=== PATIENT | male | born 1965 | race Caucasian/White ===

== ENCOUNTER 2019-06-03 14:10 | Inpatient (IN) | payer OTHER, SELFPAY ==
[2019-06-03] MEDS ORDERED: Morphine 4 MG/ML VIAL ONE (14:27)
--- NOTE | 2019-06-03 14:50 | RAD ---
2 VIEWS RIGHT HIP: Date: 06/03/19 COMPARISON: None. HISTORY: Fall with right hip pain. FINDINGS: 2 views of the right hip show an intertrochanteric right femur fracture. No degenerative change seen in the right hip. Surrounding soft tissue swelling is seen. IMPRESSION: Intertrochanteric right femur fracture. POS: OFF
--- NOTE | 2019-06-03 14:51 | RAD ---
SINGLE VIEW PELVIS: Date: 06/03/19 HISTORY: Fall with right hip pain. FINDINGS: A single view of the pelvis shows an intertrochanteric right femur fracture. No other fractures are s een. No degenerative changes are seen in either hip. IMPRESSION: Right intertrochanteric femur fracture. POS: OFF
[2019-06-03 15:14] LABS: #Basophils 0.1 thou/uL (0.0-0.2); #Lymphocytes 1.8 thou/uL (1.20-3.40); #Monocytes 0.4 thou/uL (0.11-0.59); #Neutrophils 1.9 thou/uL (1.40-6.50); %Basophils 1.3 % (0.0-1.0); %Lymphocytes 43.5 % (21.0-51.0); %Monocytes 9.6 % (0.0-10.0); %Neutrophils 44.6 % (42.0-75.0); Hemoglobin 15.5 g/dL (14.0-18.0); Mean Corpuscular HGB CONC 35.4 g/dL (32.0-36.0); Mean Corpuscular Hemoglobin 33.5 pg (27.0-31.0); Mean Corpuscular Volume 94.7 fL (78.0-98.0); Mean Platelet Volume 10.3 fL (7.4-10.4); Platelet Count 210 thou/uL (130-400); RBC Distribution Width 12.7 % (11.5-14.5); Red Blood Cell (RBC) Count 4.63 mill/uL (4.70-6.10); White Blood Cell (WBC) Count 4.2 thou/uL (4.8-10.8)
[2019-06-03] MEDS ORDERED: CEFAZOLIN 2 GM in Premix Bag 1 BAG IVPB SCH (15:15)
--- NOTE | 2019-06-03 15:27 | RAD ---
XR Chest 1 View Portable HISTORY: Fall, chest pain COMPARISON: None FINDINGS: The heart size is normal. The lungs are well expanded without focal areas of consolidation, pneumothorax or pleural effusions. IMPRESSION: No radiographic evidence of acute cardiopulmonary process.
[2019-06-03 15:33] LABS: ALT (SGPT) 30 U/L (8-55); AST (SGOT) 34 U/L (5-34); Albumin 3.9 g/dL (3.5-5.0); Alkaline Phosphatase 59 U/L (40-110); Anion Gap 11 mmol/L (10-20); BUN (Urea Nitrogen) 11 mg/dL (8.4-25.7); Bilirubin, Total 0.4 mg/dL (0.2-1.2); Calc. Creatinine Clearance 0 mL/min (70-130); Calcium 8.8 mg/dL (7.8-10.44); Carbon Dioxide 25 mmol/L (22-29); Chloride 106 mmol/L (98-107); Estimated GFR-MDRD 81; Glucose 83 mg/dL (70-105); Lipase 53 U/L (8-78); Potassium 3.6 mmol/L (3.5-5.1); Protein, Total 7.9 g/dL (6.0-8.3); Sodium 138 mmol/L (136-145)
--- NOTE | 2019-06-03 15:41 | CON ---
DATE OF CONSULTATION: 06/03/2019 This is Hellen Rivera PA-C dictating a report for Jose Maria Campos MD. REQUESTING PHYSICIAN: Jcarlos Jeffrey DO. CONSULTING PHYSICIAN: Jose Maria Campos MD. REASON FOR CONSULTATION: Right hip fracture. HISTORY OF PRESENT ILLNESS: This is a 53-year-old male, who was brought to our emergency department by ground EMS after a fall off an automobile lift, approximately 6 feet. He states he landed directly onto his right hip. Denied any head injury or loss of consciousness. Workup in the emergency department revealed a right intertrochanteric femur fracture and we have been consulted for this reason. Currently at bedside, the patient denies any numbness or tingling in the right lower extremity. He denies any other extremity pain. No headache. PAST MEDICAL HISTORY: Significant for hepatitis C. PAST SURGICAL HISTORY: Left hand and knee surgery. 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 He lives in a chcf house in [place], [place]. He currently denies any alcohol or illicit drug use. The patient uses chewing tobacco. FAMILY HISTORY: Reviewed and noncontributory. REVIEW OF SYSTEMS: Ten-point review of systems conducted and otherwise negative except for stated above. PHYSICAL EXAMINATION: VITAL SIGNS: Current vital signs including temperature of 98.5, pulse of 71, respiratory rate of 16, O2 saturation of 98%, blood pressure of 127/91. GENERAL: The patient is awake and alert. He is in no apparent distress. He is lying supine on an ER stretcher at this time. His boss from work is present in the room. He is appropriate and answers all questions. HEENT: Head is normocephalic and atraumatic. NECK: Supple. Trachea midline. LUNGS: Breathing is nonlabored. EXTREMITIES: The right lower extremity is held in a position of comfort with a blanket tucked underneath the patient's knee in slight flexion. The hip is rotated externally slightly. It appears slightly shortened. The patient is able to move his toes. His foot is cool to touch, but has a good DP pulse. He is also able to move the knee without any difficulty. Skin is intact overlying the right hip. No ecchymosis or lesions present at this time. All other extremities evaluated and no other deformities are noted. IMAGING STUDIES: Radiographic imaging including views of the right hip demonstrates a displaced intertrochanteric femur fracture. ASSESSMENT: Right intertrochanteric femur fracture. PLAN: At this time, the patient will be admitted to the Trauma Service. He may eat up until midnight. After that time, he will be n.p.o. We will plan for surgical intervention tomorrow including a right dynamic hip screw. Risks, benefits, and alternatives discussed with the patient today. He is amenable to this plan of care. Postoperatively, he will work with physical therapy. We will re-evaluate him at that time as well as discuss his living situation and make the best decision as far as postoperative care and discharge. Job ID: [id number]
[2019-06-03] MEDS: Sodium Chloride 0.9% 1,000 ML IV SCH ×2 (15:49→17:12)
[2019-06-03] MEDS ORDERED: Morphine 2 MG/ML SYRINGE SLOW IVP PRN (15:49)
[2019-06-03] MEDS ORDERED: Ondansetron PF 4 MG/2 ML Vial IVP PRN (15:49)
[2019-06-03] MEDS ORDERED: Dextrose 5% in Water 1,000 ML IV PRN (15:49)
[2019-06-03] MEDS ORDERED: hydrALAZINE 20 MG/ML VIAL SLOW IVP PRN (15:49)
[2019-06-03] MEDS ORDERED: Promethazine HCl 25 MG/ML VIAL IM PRN ×2 (15:49)
[2019-06-03] MEDS ORDERED: Dextrose 50% Abboject 50 ML SYRINGE SLOW IVP PRN (15:49)
[2019-06-03] MEDS ORDERED: Ondansetron ODT 4 MG TAB PO PRN (15:49)
[2019-06-03] MEDS ORDERED: Ketorolac Tromethamine 30 MG/ML VIAL ONE (15:52)
[2019-06-03] MEDS: Ketorolac Tromethamine 30 MG/ML VIAL IVP SCH (17:13)
--- NOTE | 2019-06-03 17:14 | HP ---
REQUESTING PHYSICIAN: Jcarlos Jeffrey DO ATTENDING SURGEON: Michele Gandhi DO CONSULTATIONS: Orthopedics, Jose Maria Campos MD HISTORY OF PRESENT ILLNESS: The patient is a 53-year-old man, who was brought to the Emergency Department by ground EMS after falling off an automobile lift. It was estimated the fall was approximately 6 feet in height. He denied loss of consciousness or hitting his head, only landing on his right hip. The patient underwent evaluation and examination in the Emergency Department, was noted to have a right hip fracture, at which time we were asked to evaluate the patient for admission and obtain Orthopedic consultation. PAST MEDICAL HISTORY: Hepatitis C. PAST SURGICAL HISTORY: Tendon repair of left hand, knee surgery, and open reduction and internal fixation of a fracture. CURRENT MEDICATIONS: None. ALLERGIES: NONE. SOCIAL HISTORY: The patient dips tobacco. Denies alcohol or drugs. He works at [employer] here in [place], but lives in [place]. REVIEW OF SYSTEMS: A 10-point review of systems is negative as otherwise stated. PHYSICAL EXAMINATION: VITAL SIGNS: Blood pressure 127/91, heart rate 71, respirations 16, oxygen saturation 98% on room air, and temperature is 98.5. GENERAL: The patient is resting comfortably in bed. He is awake, alert, and oriented x3. [place] Coma Scale is 15. HEENT: Head is normocephalic and atraumatic. Eyes, extraocular motions intact. PERRLA bilaterally. Ears are atraumatic without discharge. Nose is atraumatic without discharge. Oropharynx is clear. NECK: Nontender. Trachea is midline. No JVD. CHEST: Clear to auscultation with good inspiratory and expiratory effort. HEART: Regular rate and rhythm. ABDOMEN: Soft, flat, and nontender with active bowel sounds. EXTREMITIES: Neurovascularly intact x4. The patient's right lower extremity is tender to palpation to the right hip consistent with his fracture. LABORATORY FINDINGS: White blood cell count 4.2, hemoglobin 15.5, hematocrit 43.9, and platelets 210. Sodium 138, potassium 3.6, chloride 106, CO2 of 25, BUN 11, creatinine 0.98, and glucose 83. LFTs are unremarkable. Lipase 53. RADIOGRAPHS: AP chest x-ray shows no radiographic evidence of acute cardiopulmonary process. AP pelvis shows a right intertrochanteric femur fracture. Views of the right hip again show a right intertrochanteric femur fracture. ASSESSMENT AND PLAN: 1. Status post fall from a car lift of approximately 6 feet. 2. Right intertrochanteric femur fracture. 3. Acute pain secondary to above. 4. History of hepatitis C. Plan will be to admit the patient to the surgical floor. He has had lunch, which negates him being able to have surgery today. He will be made n.p.o. after midnight. We will do pain control, pulmonary toilet, gastritis, and mechanical VTE prophylaxis. Postoperatively, we will begin physical and occupational therapy. The patient was evaluated in the Emergency Department by Dr. Campos. The evaluation, examination, laboratory, and radiographic findings will be discussed with Dr. Gandhi after this dictation. Job ID: [id number]
[2019-06-03 17:19] VITALS: BMI 24.7
[2019-06-03] MEDS: Morphine 4 MG/ML VIAL SLOW IVP PRN ×3 (17:54→22:42)
[2019-06-03] MEDS: Acetaminophen 1,000 MG in Premix Bag 1 BAG IVPB SCH (18:00)
[2019-06-03] MEDS: Famotidine 20 MG TAB PO SCH (20:44)
[2019-06-04] MEDS: Acetaminophen 1,000 MG in Premix Bag 1 BAG IVPB SCH ×3 (00:27→17:59)
[2019-06-04] MEDS: Sodium Chloride 0.9% 1,000 ML IV SCH ×2 (00:28→08:21)
[2019-06-04] MEDS: Ketorolac Tromethamine 30 MG/ML VIAL IVP SCH ×4 (00:28→18:00)
--- NOTE | 2019-06-04 01:48 | PRG ---
DATE OF SERVICE: 06/03/2019 SUBJECTIVE: Mr. Acevedo is a 53-year-old male, status post fall from a car lift approximately 6 feet. He sustained right hip fracture with a history of hepatitis C. The patient reports pain is well controlled. He has tolerated with regular diet. OBJECTIVE: GENERAL: Currently, the patient is lying down in bed comfortable with no acute respiratory distress. VITAL SIGNS: Stable. LUNGS: Clear bilaterally. HEART: Regular rate and rhythm. ABDOMEN: Soft, nondistended. NEUROLOGICAL: No focal neurology deficits. Pain and limited range of motion from right hip. PLAN: We will continue supportive care. Continue with pain control. N.p.o. at midnight. The patient will be going to the OR with Orthopedics for right hip fixation. Postop, the patient will be working with PT/OT and anticipate placement in rehabilitation facility. Job ID: [id number]
[2019-06-04] MEDS: Morphine 4 MG/ML VIAL SLOW IVP PRN ×5 (01:57→22:52)
[2019-06-04 04:49] LABS: #Lymphocytes 1.8 thou/uL (1.20-3.40); #Monocytes 0.6 thou/uL (0.11-0.59); #Neutrophils 1.6 thou/uL (1.40-6.50); %Basophils 0.2 % (0.0-1.0); %Eosinophils 1.1 % (0.0-10.0); %Lymphocytes 44.8 % (21.0-51.0); %Monocytes 14.2 % (0.0-10.0); %Neutrophils 39.7 % (42.0-75.0); Hemoglobin 13.9 g/dL (14.0-18.0); Mean Corpuscular HGB CONC 33.3 g/dL (32.0-36.0); Mean Corpuscular Hemoglobin 32.4 pg (27.0-31.0); Mean Corpuscular Volume 97.3 fL (78.0-98.0); Mean Platelet Volume 8.1 fL (7.4-10.4); Platelet Count 171 thou/uL (130-400); RBC Distribution Width 12.7 % (11.5-14.5); Red Blood Cell (RBC) Count 4.29 mill/uL (4.70-6.10); White Blood Cell (WBC) Count 4.1 thou/uL (4.8-10.8)
[2019-06-04 05:13] LABS: Anion Gap 9 mmol/L (10-20); BUN (Urea Nitrogen) 8 mg/dL (8.4-25.7); Calc. Creatinine Clearance 115 mL/min (70-130); Calcium 8.1 mg/dL (7.8-10.44); Carbon Dioxide 24 mmol/L (22-29); Chloride 111 mmol/L (98-107); Estimated GFR-MDRD Greater than 90; Glucose 94 mg/dL (70-105); Potassium 4.3 mmol/L (3.5-5.1); Sodium 140 mmol/L (136-145)
[2019-06-04] MEDS: Famotidine 20 MG TAB PO SCH ×2 (08:16→20:06)
[2019-06-04] MEDS ORDERED: Rocuronium Bromide 10 MG/ML (10ML VIAL) ONE (09:44)
[2019-06-04] MEDS ORDERED: Ondansetron PF 4 MG/2 ML Vial ONE (09:44)
[2019-06-04] MEDS ORDERED: ePHEDrine/0.9% NaCl/PF SYRINGE 50 mg/10 ml ONE (09:44)
[2019-06-04] MEDS ORDERED: PROPOFOL 200 MG/20 ML VIAL ONE (09:44)
[2019-06-04] MEDS ORDERED: Lidocaine 1% PF 5 ML VIAL ONE (09:44)
--- NOTE | 2019-06-04 10:43 | PRG ---
DATE OF SERVICE: 06/04/2019 SUBJECTIVE: The patient is a 53-year-old male, status post fall from a car lift at approximately 12 feet in height. He sustained a right hip fracture. This morning, the patient reports that his pain is well controlled. He has been n.p.o. since midnight with anticipation of surgical repair of the right hip by Dr. Campos, Orthopedic Surgery, later this morning. OBJECTIVE: VITAL SIGNS: Temperature 98.3 Fahrenheit, blood pressure 114/69, pulse 72, respirations 18, O2 saturation 94% on room air. GENERAL: Awake, alert, well-appearing male, who is lying in bed comfortably with no signs of acute distress. LUNGS: Equal chest rise and fall. No signs of acute respiratory distress. ABDOMEN: Soft, nondistended. NEURO: No focal deficits. GCS 15. LABORATORY STUDIES: WBC 4.1, hemoglobin 13.9, hematocrit 41.7, platelets 171. Sodium 140, potassium 4.3, chloride 111, carbon dioxide 24, BUN 8, creatinine 0.84, estimated GFR greater than 90, glucose 94. PLAN: Continue supportive care and pain control. The patient will be going to the OR with Orthopedic Surgery this morning for right hip fixation. Postop plan for the patient to work with Physical Therapy and Occupational Therapy. Anticipate, the patient will need either placement in rehabilitation facility or continued therapy with Home Health Services. The patient's case is complicated by the fact that he lives in a [facility] in [place]. Unsure of services, he can receive there. The patient was seen and evaluated by Dr. Gandhi during morning rounds. Discussed plan of care with the patient, who is in agreement. Job ID: [id number]
[2019-06-04] MEDS ORDERED: Fentanyl 100 MCG/2 ML VIAL ONE ×5 (12:33→16:06)
[2019-06-04] MEDS ORDERED: Ketorolac Tromethamine 30 MG/ML VIAL ONE (12:56)
[2019-06-04] MEDS ORDERED: SUGAMMADEX SODIUM 500 MG/5 ML VIAL ONE (14:28)
--- NOTE | 2019-06-04 14:42 | RAD ---
Intraoperative imaging of the right hip: 06/04/2019 COMPARISON: 06/03/2019 HISTORY: Right femoral neck fracture status post ORIF FINDINGS: The previously noted fracture of the proximal right femur has been treated with a lag screw with associated lateral screw and plate fixation. There is anatomic alignment at the fracture site. IMPRESSION: ORIF as above.
[2019-06-04] MEDS ORDERED: Promethazine HCl 25 MG/ML VIAL IM PRN (15:12)
[2019-06-04] MEDS ORDERED: Promethazine HCl 25 MG/ML VIAL SLOW IVP PRN (15:12)
[2019-06-04] MEDS ORDERED: Ondansetron HCl/PF 4 MG/2 ML Vial IVP PRN ×2 (15:12→15:44)
[2019-06-04] MEDS ORDERED: Promethazine HCl 25 MG/ML VIAL IM/IV PRN (15:44)
[2019-06-04] MEDS ORDERED: Non-Formulary Medication 1 EACH PO PRN (15:44)
[2019-06-04] MEDS ORDERED: Morphine Sulfate 2 MG/ML SYRINGE SLOW IVP PRN (15:44)
[2019-06-04] MEDS ORDERED: PACU-Morphine 4MG/ML VIAL SLOW IVP PRN (15:44)
[2019-06-04] MEDS ORDERED: Morphine 2 MG/ML SYRINGE ONE ×2 (16:57→17:13)
[2019-06-04] MEDS: CEFAZOLIN 2 GM in Premix Bag 1 BAG IVPB SCH (20:07)
--- NOTE | 2019-06-04 21:55 | OP ---
DATE OF PROCEDURE: 06/04/2019 PREOPERATIVE DIAGNOSIS: Right intertrochanteric femur fracture. POSTOPERATIVE DIAGNOSIS: Right intertrochanteric femur fracture. PROCEDURE PERFORMED: Open reduction and internal fixation of right intertrochanteric femur fracture. ANESTHESIA: General. MULTIMEDIA MANAGER: Natacha. IMPLANTS: Synthes DHS 135-degree 3-hole sideplate with 100-mm hip screw. COMPLICATIONS: None. DRAINS: None. SPECIMEN: None. ESTIMATED BLOOD LOSS: 50 mL. OUTCOME: Near-anatomic alignment. INDICATIONS: Mr. Acevedo is a 53-year-old gentleman status post fall from a height of approximately 6 feet, sustaining a right intertrochanteric femur fracture. After discussion with the patient including risks and benefits, we decided to proceed with open reduction and internal fixation using a DHS sideplate. I have discussed with the patient risks and benefits of this procedure. Risks include, but are not limited to bleeding, infection, nerve injury, DVT, PE, loss of limb or life. The patient appears to understand and does wish to proceed. Informed consent has been obtained. DESCRIPTION OF PROCEDURE: The patient was brought to the operating room and a time-out performed followed by induction of general anesthesia. Next, the patient was positioned supine on the fracture table, and then a sterile prep and drape was performed of the right lateral thigh. Next, an incision was made starting just at the base of the greater trochanter and extending distally. After skin was sharply incised, dissection was carried down to the underlying tensor fascia fausto. This structure was incised in line with the skin incision revealing the underlying fascia of the vastus lateralis. This structure was then also incised in line with the skin incision. Then, the muscle belly swept off the posterior leaflet of the fascia and reflected anteriorly. Next, a radiolucent retractor was placed over the anterior cortex of the femur to retract the vastus lateralis muscle. A threaded guidewire was then inserted with 135-degree jig from the lateral cortex of the femur up into the femoral neck and head approaching a [id number] position. Once appropriately positioned, measurement was taken off this pin. Next, reaming was passed over this guidewire for preparing the neck and head to accept the hip screw. A 100-mm hip screw and 3-hole sideplate was then inserted in the wound. The hip screw inserted all way up into the femoral head and then the sideplate affixed to the lateral aspect of the femur. This was held in place with 3 cortical screws. Next, final AP and lateral C-arm images were obtained, that showed acceptable alignment of this fracture and hardware. The wound was then irrigated with normal saline, closed in layers with 0 Vicryl for the tensor fascia fausto, 2-0 Vicryl subcutaneously, and kaushal for the skin. Xeroform gauze and tape dressing were then applied to the thigh and the patient was transferred to recovery room in stable condition. There were no complications. The patient tolerated the procedure well. Job ID: [id number]
[2019-06-05] MEDS: Ketorolac Tromethamine 30 MG/ML VIAL IVP SCH ×2 (00:09→05:26)
[2019-06-05] MEDS: Sodium Chloride 0.9% 1,000 ML IV SCH ×3 (01:20→18:23)
--- NOTE | 2019-06-05 01:40 | PRG ---
DATE OF SERVICE: 06/04/2019 SUBJECTIVE: Mr. Acevedo is a 53-year-old status post fall from 12 feet height. He sustained right hip fracture. He underwent ORIF of right hip fracture. Postop, the patient reports he has been doing good. Pain is well controlled. He is not yet working with PT, OT. His vital signs have been stable. He is tolerating with his regular diet. OBJECTIVE: GENERAL: Currently, the patient is lying down in bed comfortable with no acute respiratory distress. VITAL SIGNS: Stable. EXTREMITIES: Postop dressing of the right hip is clean, dry, intact. Neurovascularly intact x4. PLAN: Continue supportive care. Continue pain control. The patient will be working with PT, OT tomorrow. Anticipate placement in rehabilitation facility or go home with home health. Job ID: [id number]
[2019-06-05] MEDS: CEFAZOLIN 2 GM in Premix Bag 1 BAG IVPB SCH ×2 (03:41→10:05)
[2019-06-05 06:07] LABS: #Lymphocytes 1.2 thou/uL (1.20-3.40); #Monocytes 0.6 thou/uL (0.11-0.59); #Neutrophils 3.8 thou/uL (1.40-6.50); %Basophils 0.3 % (0.0-1.0); %Eosinophils 0.7 % (0.0-10.0); %Monocytes 10.1 % (0.0-10.0); Mean Corpuscular HGB CONC 33.3 g/dL (32.0-36.0); Mean Corpuscular Hemoglobin 32.1 pg (27.0-31.0); Mean Corpuscular Volume 96.4 fL (78.0-98.0); Mean Platelet Volume 8.1 fL (7.4-10.4); Platelet Count 165 thou/uL (130-400); RBC Distribution Width 12.5 % (11.5-14.5); Red Blood Cell (RBC) Count 4.06 mill/uL (4.70-6.10); White Blood Cell (WBC) Count 5.7 thou/uL (4.8-10.8)
[2019-06-05] MEDS: Morphine 4 MG/ML VIAL SLOW IVP PRN (07:48)
[2019-06-05] MEDS: Famotidine 20 MG TAB PO SCH ×2 (07:49→20:11)
[2019-06-05] MEDS ORDERED: traMADol HCl 50 MG TAB PO PRN (08:46)
[2019-06-05] MEDS: Enoxaparin Sodium 40 MG/0.4 ML SYRINGE SC SCH (09:19)
[2019-06-05] MEDS: traMADol HCl 50 MG TAB PO PRN ×2 (09:21→16:42)
[2019-06-05] MEDS: Ibuprofen 800 MG TAB PO SCH ×2 (12:27→18:04)
[2019-06-05] MEDS: Acetaminophen 500 MG TAB PO SCH ×2 (12:28→18:04)
--- NOTE | 2019-06-05 12:52 | PRG ---
DATE OF SERVICE: 06/05/2019 SUBJECTIVE: The patient is a 53-year-old male, status post fall from a car lift at approximately 12 feet in height. He sustained a right hip fracture. He is status postop day #1 after an ORIF of right hip by Dr. Campos. The patient states that his pain is well controlled, he has been receiving morphine 2 and 4 mg through the night. He has not yet began working with Physical Therapy or Occupational Therapy. He is tolerating a regular diet. OBJECTIVE: VITAL SIGNS: Temperature 98.3 Fahrenheit, blood pressure 138/79, pulse 94, respirations 16, and O2 saturation 92% on room air. GENERAL: Awake, alert, well-appearing male, who is sitting in his bedside chair comfortably with no signs of acute distress. LUNGS: Equal chest rise and fall. No signs of acute respiratory distress. ABDOMEN: Soft, nondistended. EXTREMITIES: Postop dressing on right hip is dry and intact. LABORATORY STUDIES: WBC 5.7, hemoglobin 13.0, hematocrit 39.2, and platelets 165. PLAN: Continue supportive care and pain control. Encourage the patient to work with Physical Therapy and Occupational Therapy this morning. Anticipate the patient will have placement in rehabilitation facility or continued therapy with home health services. The patient's case is complicated by his current living situation and no insurance. Await PT assessment to see if he will need further physical therapy services. We will adjust pain control to include p.o. medications acetaminophen, ibuprofen, and tramadol. We will discontinue morphine at this time. The patient was seen and evaluated by Dr. Gandhi during morning rounds. Discussed plan of care with the patient, he was in agreement. Job ID: [id number]
[2019-06-06] MEDS: Acetaminophen 500 MG TAB PO SCH ×4 (00:12→18:16)
[2019-06-06] MEDS: Ibuprofen 800 MG TAB PO SCH ×4 (00:12→18:16)
[2019-06-06 05:51] LABS: #Eosinphils 0.1 thou/uL (0.0-0.7); #Lymphocytes 1.5 thou/uL (1.20-3.40); #Monocytes 0.6 thou/uL (0.11-0.59); %Basophils 0.1 % (0.0-1.0); %Eosinophils 1.9 % (0.0-10.0); %Lymphocytes 29.2 % (21.0-51.0); %Monocytes 11.1 % (0.0-10.0); %Neutrophils 57.7 % (42.0-75.0); Hemoglobin 12.6 g/dL (14.0-18.0); Mean Corpuscular HGB CONC 33.2 g/dL (32.0-36.0); Mean Corpuscular Hemoglobin 32.2 pg (27.0-31.0); Platelet Count 149 thou/uL (130-400); RBC Distribution Width 12.5 % (11.5-14.5); Red Blood Cell (RBC) Count 3.92 mill/uL (4.70-6.10); White Blood Cell (WBC) Count 5.2 thou/uL (4.8-10.8)
--- NOTE | 2019-06-06 07:19 | PRG ---
DATE OF SERVICE: 06/05/2019 SUBJECTIVE: Mr. Acevedo is a 53-year-old male, status post fall from 12 feet high. He sustained right hip fracture. He underwent ORIF of right hip fracture. Postop, the patient reports pain is control. He is able to work with PT/OT. OBJECTIVE: VITAL SIGNS: Stable. GENERAL: He tolerated with his regular diet. Currently, the patient lying in bed comfortable with no acute respiratory distress. LUNGS: Clear bilaterally. HEART: Regular rate and rhythm. EXTREMITIES: Postop dressing dry, clean, intact. NEUROVASCULAR: Intact x4. PLAN: Will be continue supportive care. Continue pain control. Continue DVT prophylaxis. Anticipate placement in rehabilitation facility. Job ID: [id number] [facility]
[2019-06-06] MEDS: Famotidine 20 MG TAB PO SCH (09:12)
[2019-06-06] MEDS: Enoxaparin Sodium 40 MG/0.4 ML SYRINGE SC SCH (09:12)
[2019-06-06 12:14] VITALS: TEMP 98.4
[2019-06-06 16:09] VITALS: BP 153/89
--- NOTE | 2019-06-07 02:31 | DIS ---
DATE OF ADMISSION: 06/03/2019 DATE OF DISCHARGE: 06/06/2019 ADMISSION DIAGNOSES: 1. Status post fall from car lift. 2. Right intertrochanteric femur fracture. 3. Acute pain secondary to above. CONSULTATIONS: Orthopedics, Dr. Campos. PROCEDURES: Open reduction and internal fixation of right intertrochanteric femur fracture. SUMMARY: The patient is a 53-year-old man who was standing on one side of a car lift when he went to step to the other side and fell down between the two supports, landing on his right hip. He was brought to the emergency department, where he underwent evaluation and examination and was noted to have the above injury. He was able to be taken to the operating room to undergo his above procedure, which he tolerated well. He began working with Physical and Occupational Therapy. His pain was controlled at time of discharge. He was ambulating with the use of a walker. He has been trained and instructed on use of crutches and he declined inpatient rehab and desires outpatient physical therapy. This has been arranged by Case Management and he will follow up with Dr. Campos in 2 weeks, sooner as needed. Job ID: [id number]
== END 2019-06-06 18:28 | disposition home health service (06) | DRG 482 ==
LOC: ERS 14:10 → ONC 17:05 → SURG A 06-04 13:09 → SJJU 06-04 17:29
PROVIDERS: ADMIT Orthopaedic Surgery; ATTEND Surgery
PROC: 0QS604Z Reposition Right Upper Femur with Internal Fixation Device, Open Approach (ICD-10-PCS; principal; 2019-06-04)
DX: S72.141A Displaced intertrochanteric fracture of right femur, initial encounter for closed fracture (principal); W17.89XA Other fall from one level to another, initial encounter; B19.20 Unspecified viral hepatitis C without hepatic coma; Z98.890 Other specified postprocedural states; G89.18 Other acute postprocedural pain
CPT/HCPCS: 36415; 71045; 72170; 76000; 80048; 80053; 83690; 85025; 86850; 86900; 86901; 93005; 96374; 96375; C1713; C1769; J0131; J0690; J1650; J1885; J2001; J2270; J2405; J2704; J3010